=== PATIENT | female | born 1960 | race Caucasian/White ===

== ENCOUNTER 2018-05-02 12:16 | Emergency (ER) | payer OTHER ==
[2018-05-02 12:24] VITALS: BP 113/61; PULSE 99; TEMP 99.5; BMI 28.1
[2018-05-02] MEDS ORDERED: KETOROLAC TROMETHAMINE 60 MG/2 ML VIAL IM ONE (12:45)
[2018-05-02] MEDS ORDERED: KETOROLAC TROMETHAMINE 60 MG/2 ML VIAL ONE (12:49)
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
== END 2018-05-02 13:43 | disposition home or self-care (01) ==
LOC: JERFT 12:16
PROC: 3E0233Z Introduction of Anti-inflammatory into Muscle, Percutaneous Approach (ICD-10-PCS; principal; 2018-05-02)
DX: M54.41 Lumbago with sciatica, right side (principal); V48 Car occupant injured in noncollision transport accident
CPT/HCPCS: 72100-TC-FY; 99281-25

== ENCOUNTER 2018-05-27 14:26 | Emergency (ER) | payer OTHER ==
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
[2018-05-27 15:05] VITALS: BP 134/84; PULSE 75; TEMP 98.2; BMI 27.4
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
== END 2018-05-27 16:27 | disposition home or self-care (01) ==
LOC: JERFT 14:26
PROC: 2W3QXYZ Immobilization of Right Lower Leg using Other Device (ICD-10-PCS; principal; 2018-05-27)
DX: M25.561 Pain in right knee (principal)
CPT/HCPCS: 29530; 73560-TC-RT-FY; 99281-25

== ENCOUNTER 2018-11-12 10:40 | Day surgery (SDC) | payer OTHER ==
[2018-11-10 14:28] VITALS: BMI 29.7
[2018-11-12] MEDS ORDERED: LIDOCAINE HCL 1%, 10 MG/ML (20ML VIAL) ONE (10:54)
[2018-11-12] MEDS ORDERED: BUPIVACAINE HCL/PF 0.5% (5MG/ML) 10 ML VIAL ONE (10:54)
--- NOTE | 2018-11-12 11:27 | HP ---
Satellite [facility] - Chief Complaint Chief Complaint: right knee pain - Past Medical History Allergies/Adverse Reactions: Allergies Allergy/AdvReac Type Severity Reaction Status Date / Time No Known Allergies Allergy Verified 05/27/18 15:02 - Current Medications Current Medications: Home Medications Medication Instructions Recorded Omeprazole 20 mg PO PRN PRN 11/10/18 Hydrocodone/Acetaminophen 1 each PO Q6H #20 tablet MDD 4 11/12/18 [Hydrocodone-Acetamin 5-325 mg] Satellite Physical Exam - Physical Examination General Appearance: Well Nourished, Well Developed, Alert & Oriented x3 ENT: Clear Lung: Normal air movement Heart: Regular rate & rhythm Extremities: Other (right knee- + swelling, + ttp, decr rom, + mcmurrays, nvi MRI + mmt, djd) Neurological: Intact, Alert, Oriented Satellite Impression/Plan - Impression/Plan Impression: right knee internal derangement Operative Procedure: right knee arthroscopy Date to be Performed: 11/12/18
[2018-11-12] MEDS ORDERED: KETOROLAC TROMETHAMINE 30 MG/1 ML VIAL ONE (12:40)
[2018-11-12] MEDS ORDERED: SODIUM CHLORIDE 0.9% P/F 10 ML VIAL IJ ONE (12:40)
[2018-11-12] MEDS ORDERED: ceFAZolin SODIUM 1 GM VIAL ONE (12:40)
[2018-11-12] MEDS ORDERED: LIDOCAINE HCL/PF 2% SDV 5ML VIAL ONE (12:40)
[2018-11-12] MEDS ORDERED: DEXAMETHASONE SOD PHOSPHATE 4 MG/1 ML VIAL ONE (12:40)
[2018-11-12] MEDS ORDERED: MIDAZOLAM HCL 2 MG/2 ML SINGLE DOSE VIAL ONE (12:41)
[2018-11-12] MEDS ORDERED: GLYCOPYRROLATE 0.2 MG/1 ML VIAL ONE (13:11)
[2018-11-12] MEDS ORDERED: ceFAZolin SODIUM 1 GM VIAL IVPB ONE (13:30)
--- NOTE | 2018-11-12 13:55 | OP ---
Operative Note - Note: Operative Date: 11/12/18 Pre-Operative Diagnosis: right knee medial and lateral meniscectomy, plica excision Operation: right knee medial and lateral meniscus tear, plica Post-Operative Diagnosis: Same as Pre-op Surgeon: John Paul Lockwood Anesthesiologist/BAILER TENDERS SUPERVISOR: Harjinder Lynch Anesthesia: General, Local Specimens Removed: shavings Estimated Blood Loss (mls): 0 Drains, Volume Out (mls): 0 Blood Volume Replaced (mls): 0 Fluid Volume Replaced (mls): 700 Operative Report Dictated: Yes
[2018-11-12] MEDS ORDERED: ONDANSETRON 4 MG/2 ML VIAL IVPUSH PRN (14:06)
[2018-11-12] MEDS ORDERED: oxyCODONE HCL 5 MG TABLET PO PRN (14:06)
[2018-11-12] MEDS ORDERED: LACTATED RINGERS SOLUTION 1,000 ML IV SCH (14:15)
[2018-11-12] MEDS ORDERED: ONDANSETRON 4 MG/2 ML VIAL ONE (16:07)
[2018-11-12 17:25] VITALS: TEMP 98.2
[2018-11-12 21:01] VITALS: BP 130/80; PULSE 70
--- NOTE | 2018-11-13 09:46 | OP ---
DATE OF OPERATION: 11/12/2018 PREOPERATIVE DIAGNOSES: Right knee pain, medial meniscus tear. POSTOPERATIVE DIAGNOSES: Right knee medial meniscus tear, lateral meniscus tear, and medial plica. PROCEDURE: Right knee arthroscopy, partial medial and lateral meniscectomy, and medial plica excision. SURGEON: Gi Levin MD ASSISTANTS: None. ANESTHESIOLOGIST: Harjinder Lynch CRNA ANESTHESIA: LMA with local injection 20 mL 0.5% Marcaine. DRAINS: None. COMPLICATIONS: None. SPECIMENS: Arthroscopic shavings. BLOOD LOSS: None. BLOOD GIVEN: None. This patient is a 58-year-old female with a preoperative diagnosis of right knee pain and a medial meniscus tear. After understanding the potential risks, complications, alternatives, and benefits of surgery versus nonsurgical treatment, the patient elected to undergo this procedure. The right lower extremity was prepped and draped in usual sterile fashion. Ample padding was put throughout including C clamp, leg holders, Styrofoam rings; elevated, exsanguinated with an Esmarch bandage. Tourniquet inflated to 275 mmHg. A superomedial outflow portal was established. A lateral portal was established. An arthroscope was then introduced into the joint. A spinal needle was used to establish a medial portal, and a diagnostic arthroscopy was performed. The patient was seen to have a small radial tear of the junction of the body and posterior horn of the medial meniscus. Therefore, this was first probed, then debrided with the curved shaver. Patient did have an area of grade 4 chondromalacia about the size of a silver dollar in the weightbearing portion of the medial femoral condyle. Photographs were taken. There was grade 2 chondromalacia of the medial tibial plateau. Patient did have a large, sanchez medial plica. Therefore, this was debrided as well with the shaver. The intercondylar notch looked good. There was some synovitis which was removed. The ACL looked good. In the lateral compartment, the patient was seen to have a small radial tear of the junction of the body and posterior horn of the lateral meniscus. This was debrided with the curved shaver. Patient had no arthritis of the lateral femoral condyle and grade 1/grade 2 changes of the lateral tibial plateau. This was gently debrided. Next, our attention was turned to the intercondylar notch. Patient did have some arthritis of the trochlea. The undersurface of the patella looked good. There was some synovitis which was removed, but otherwise left alone. All instrumentation was removed. Excess saline was removed. The arthroscopy portals were closed with 3-0 nylon sutures. Next, 20 mL of 0.5% Marcaine were introduced into the joint. The area was then washed and dried, covered with Xeroform, 4 x 4 gauze, Webril, and Slick bandage. Tourniquet was taken down after total tourniquet time of 22 minutes. There were no complications during the case. Patient tolerated the procedure quite well. GI LEVIN M.D. [id number]
--- NOTE | 2018-11-14 16:39 | PATH ---
Surgical Pathology Report Patient Name: ZA BUTLER [facility]. Rec. #: [id number] /Age/Gender: 1960 (Age: 58) / F Account: [id number] Location: [facility] Taken: 11/12/2018 Received: 11/13/2018 Reported: 11/14/2018 Physicians: John Paul Lockwood M.D. Specimen(s) Received RIGHT KNEE SHAVINGS Clinical History Right knee tear Final Diagnosis KNEE SHAVINGS, RIGHT, ARTHROSCOPY: FRAGMENTS OF CARTILAGE, DENSE FIBROCONNECTIVE TISSUE, ADIPOSE TISSUE, AND SYNOVIUM. Electronically Signed Emily Matt M.D. Gross Description Received in formalin, labeled "right knee shavings," is a 5.0 x 4.0 x 0.4 cm. aggregate of jackson-yellow soft tissue fragments. A architectural representative portion is submitted in one cassette. /11/13/2018 saudi11/13/2018
== END 2018-11-12 19:10 | disposition home or self-care (01) ==
LOC: JASU-SURG 10:40
PROVIDERS: ATTEND Orthopaedic Surgery
PROC: 0SBC4ZZ Excision of Right Knee Joint, Percutaneous Endoscopic Approach (ICD-10-PCS; 2018-11-12)
PROC: 0SBC4ZZ Excision of Right Knee Joint, Percutaneous Endoscopic Approach (ICD-10-PCS; 2018-11-12)
PROC: 0SBC4ZZ Excision of Right Knee Joint, Percutaneous Endoscopic Approach (ICD-10-PCS; principal; 2018-11-12 13:00)
DX: S83.241A Other tear of medial meniscus, current injury, right knee, initial encounter (principal); S83.281A Other tear of lateral meniscus, current injury, right knee, initial encounter; M67.51 Plica syndrome, right knee; X58.XXXA Exposure to other specified factors, initial encounter; Y93.9 Activity, unspecified; Y92.9 Unspecified place or not applicable
CPT/HCPCS: 88304-TC; 94760; 97116-GP